=== PATIENT | male | born 1985 | race African-American/Black ===

== ENCOUNTER 2019-06-06 15:21 | Emergency (ER) | payer SELFPAY ==
[~2019-06-06] VITALS: Ht 157.5 cm; Wt 75.0 kg
[2019-06-06 16:38] VITALS: BP 149/89
== END 2019-06-06 16:53 | disposition home or self-care (01) ==
LOC: ER 15:21
DX: H66.90 Otitis media, unspecified, unspecified ear (principal)
CPT/HCPCS: 99283